=== PATIENT | male | born 1990 | race Asian ===

== ENCOUNTER 2018-11-09 16:21 | Inpatient (IN) | payer OTHER ==
[~2018-11-09] VITALS: Ht 185.4 cm; Wt 79.9 kg
[2018-11-09] VITALS (92 sets, daily range): BP systolic 131; BP diastolic 78; PULSE 69; TEMP 98.8; O2SAT 97–99
[2018-11-09 17:22] LABS: ARTERIAL BLD GAS O2 SATURATION 96.5 % (92-100); ARTERIAL BLD GAS TCO2 CT 18.6; ARTERIAL BLOOD GAS BASE EXCESS -6.4 (-2-2); ARTERIAL BLOOD GAS HCO3 17.7 meq/L (22-26); ARTERIAL BLOOD GAS PCO2 31.7 mmHg (35-45); ARTERIAL BLOOD GAS PO2 88.6 mmHg (80-100); ARTERIAL BLOOD GAS pH 7.36 (7.35-7.45)
[2018-11-09 17:45] LABS: COLLECTION METHOD CLEAN CATCH
[2018-11-09 17:48] LABS: BASO % 0.8 % (0.0-2.0); EOS # 0.1 (0.0-0.7); EOS % 2.7 % (0-4.0); GRAN # 3.2 (1.4-6.5); GRAN % 61.3 % (42.2-75.2); HEMATOCRIT 44.1 % (42.0-52.0); LYMPH # 1.3 (1.2-3.4); LYMPH % 25.5 % (20.0-51.0); MEAN CELL VOLUME 84 fl (80.0-100.0); MEAN CORPUSCULAR HEMOGLOBIN 30 pg (27.0-31.0); MEAN CORPUSCULAR HGB CONC 36 g/dl (33.0-37.0); MEAN PLATELET VOLUME 12.4 fl (7.4-10.4); MONO # 0.5 (0.1-0.6); MONO % 9.5 % (1.7-9.3); PLATELET COUNT 180 K/mm3 (130-400); RED BLOOD COUNT 5.26 M/mm3 (4.20-5.60); REDCELL DISTRIBUTION WIDTH-CV 11.7 % (11.5-14.5)
[2018-11-09 17:52] LABS: MUCOUS Present /lpf; PH 5 (5-8); SQUAMOUS EPITHELIAL None Seen /hpf; URINE APPEARANCE Clear; URINE BACTERIA None Seen /hpf; URINE BILIRUBIN Negative (NEGATIVE); URINE BLOOD Negative (NEGATIVE); URINE COLOR Straw; URINE GLUCOSE 3+ (NEGATIVE); URINE KETONE 2+ (NEGATIVE); URINE LEUKOCYTE ESTERASE Negative (NEGATIVE); URINE NITRATE Negative (NEGATIVE); URINE PROTEIN(semi-quant) Negative (NEGATIVE); URINE RBC 0-2 /hpf; URINE UROBILINOGEN Negative (NEGATIVE)
[2018-11-09 18:05] LABS: ACETONE,SERUM MODERATE
[2018-11-09 18:07] LABS: ALANINE AMINOTRANSFERASE 23 U/L (21-72); ALBUMIN 4.5 gm/dL (3.5-5.0); ALKALINE PHOSPHATASE 131 U/L (50-136); ANION GAP 15 mmol/L (7-16); AST,SGOT 29 U/L (15-37); BILIRUBIN,TOTAL 1.2 mg/dL (0.0-1.0); BLOOD UREA NITROGEN 11 mg/dL (9-20); CALCIUM 9.5 mg/dL (8.4-10.2); CARBON DIOXIDE 21 mmol/L (22-30); CHLORIDE 93 mmol/L (98-107); CREATININE, serum 0.86 (0.66-1.25); LIPASE 128 U/L (23-300); POTASSIUM 4.5 mmol/L (3.4-5.0); SODIUM 129 mmol/L (137-145); TOTAL PROTEIN 7.6 gm/dL (6.4-8.2)
[2018-11-09 18:08] LABS: GLUCOSE 555 mg/dL (74-106)
--- NOTE | 2018-11-09 21:10 | NUR ---
GEORGINA Piedra calls at this time from ED to give report. Patient will be brought over via wheelchair.
--- NOTE | 2018-11-09 21:38 | NUR ---
Patient arrives at this time with belongings via wheelchair. Patient's girlfriend, Veronique, at the bedside. GEORGINA Piedra reports blood glucose at 159 and she stopped the insulin drip. NS remains running. Patient transfers self to unit bed. Attached to monitoring equipment and changed into gown. Assessment complete. All findings WNL. Patient has no complaints of pain or discomfort. Glucose to be checked hourly. Oriented patient to unit and room. No further needs at this time. Will continue to monitor. Call light within reach.
[2018-11-10] VITALS (608 sets, daily range): BP systolic 111–125; BP diastolic 56–76; PULSE 55–79; TEMP 97.2–98.8; O2SAT 96–100
--- NOTE | 2018-11-10 | NUR ---
Patient resting in bed at this time. No current needs. Vitals remain stable. After starting D5 1/2NS, patient is restarted on insulin at 1unit/hr due to glucose being 183. Glucose checks to continue. No complaints of pain. Will continue to monitor. Call light within reach.
--- NOTE | 2018-11-10 04:00 | NUR ---
Patient sleeps between disturbances. Patient's glucose has come down to 123, so insulin drip stopped at this time. Will continue accuchecks. Patient's vitals remain stable and WNL. No current needs. Will continue to monitor. Call light within reach.
[2018-11-10 05:29] LABS: CALCIUM 8.4 mg/dL (8.4-10.2); CREATININE, serum 0.71 (0.66-1.25); MAGNESIUM 1.9 mg/dL (1.6-2.3); POTASSIUM 3.3 mmol/L (3.4-5.0)
--- NOTE | 2018-11-10 07:43 | NUR ---
Bedside report given to GEORGINA Cesar. All lines and medications reviewed. Transfer of care at this time.
--- NOTE | 2018-11-10 07:45 | NUR ---
Bedside report received from GEORGINA Mcclain. Care of patient assumed at this time.
--- NOTE | 2018-11-10 08:08 | NUR ---
Patient assessment complete. Patient resting in bed. Denies any pain or shortness of breath at this time. No acute findings on assessment. Will continue to monitor.
--- NOTE | 2018-11-10 09:23 | NUR ---
Initial visit; Search Manager welcomed patient letting him know Search Manager is available.
--- NOTE | 2018-11-10 10:35 | NUR ---
MEHNAZ student attended clinical rounds and met with patient afterwards to discuss discharge plan. 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 Patient has girlfriend in [place] [facility], uncle in [place], and parents live out of state. Patient follows up at [facility] on campus and receives his medications from [facility]. Patient reports he usually doesn't have many medications so unsure if assistance is needed. MEHNAZ student informed patient that the social worker aide upstairs will follow when transferred. Patient does not have a DPOA-HC completed and was not interested in completing one at this time. Patient states he is fine with his parents (next of kin) making any decisions if necessary. Patient reports that he has been in contact with his professors and does not feel it necessary for us to contact [employer] at this time. No identified needs at this. SW to follow up about affording prescriptions.
--- NOTE | 2018-11-10 15:43 | NUR ---
Report called to medical floor GEORGINA Choudhary.
--- NOTE | 2018-11-10 16:00 | NUR ---
Patient arrived to floor via wheelchair from ICU. Is independent in room, girlfriend is at bedside. Lungs ascultated and clear bilaterally. HR is regular. Abdomen is soft and nontender, bowel sounds are active x4. Patient has no skin issues. No edema is noted. Accu check monitorred at this time and is 210. Patient states he does not want to eat until later as he had a late lunch. He agrees to notify nursing when he is ready to eat so he could have a recheck of his blood glucose for accurate insulin administration. Denies having any pain. Water taken to room. Call light is within reach.
--- NOTE | 2018-11-10 16:00 | NUR ---
Patient taken to medical floor room 307 by wheelchair. Patient's friend accompanies patient. No concerns at this time. All patient belongings are transported with patient. GEORGINA Choudhary, notified of patient arrival.
--- NOTE | 2018-11-10 18:29 | NUR ---
Patient has had uneventful afternoon. Still states he is not ready to eat yet. Will notify staff when ready.
--- NOTE | 2018-11-10 20:20 | NUR ---
Pt resting in bed, no C/O pain at this time, shift assessments complete, left Pt call light in reach, bed in lowest position.
[2018-11-11 00:13] VITALS: BP 107/52; PULSE 92; TEMP 98.4
[2018-11-11 04:25] VITALS: BP 108/48; PULSE 60; TEMP 97.7
--- NOTE | 2018-11-11 05:23 | NUR ---
Pt slept well during the night, no C/O pain, VS have remained stable.
[2018-11-11 05:50] LABS: BASO % 0.4 % (0.0-2.0); EOS # 0.2 (0.0-0.7); GRAN # 2.1 (1.4-6.5); GRAN % 44.3 % (42.2-75.2); LYMPH % 41.5 % (20.0-51.0); MEAN CELL VOLUME 84 fl (80.0-100.0); MEAN CORPUSCULAR HGB CONC 35 g/dl (33.0-37.0); MONO # 0.4 (0.1-0.6); MONO % 8.6 % (1.7-9.3); PLATELET COUNT 160 K/mm3 (130-400); RED BLOOD COUNT 4.36 M/mm3 (4.20-5.60); REDCELL DISTRIBUTION WIDTH-CV 11.9 % (11.5-14.5)
[2018-11-11 06:00] LABS: HEMATOCRIT 36.7 % (42.0-52.0); MEAN CORPUSCULAR HEMOGLOBIN 30 pg (27.0-31.0)
[2018-11-11 06:03] LABS: CALCIUM 8.7 mg/dL (8.4-10.2); CREATININE, serum 0.7 (0.66-1.25); POTASSIUM 3.5 mmol/L (3.4-5.0)
--- NOTE | 2018-11-11 06:50 | NUR ---
Received report from Arturo, went to see patient for shift change. Patient is observed to be lying on left side with eyes closed. Girlfriend is at bedside. Respirations are even and non-labored. Call light is within reach.
[2018-11-11] MEDS ORDERED: FREESTYLE PREC1 EAC5 MC (09:25)
[2018-11-11] MEDS ORDERED: LANCETS MC (09:26)
[2018-11-11] MEDS ORDERED: GLUCOSE TEST ST1 DEV MC (09:27)
[2018-11-11] MEDS ORDERED: LEVEMIR FLEX100 U/ML SQ (09:35)
[2018-11-11] MEDS ORDERED: NOVOLOG FLEX100 U/ML SQ ×2 (09:36)
[2018-11-11] MEDS ORDERED: CVS GLUCOSE BIT1 CTB PO (09:37)
[2018-11-11] MEDS ORDERED: HUMALOG PEN100 U/ML SQ (10:51)
--- NOTE | 2018-11-11 11:27 | NUR ---
MEHNAZ met with patient about the new medications he will need when discharged. SW reported patient can obtain coupons online for his insulin. Patient reports he will utilize those resources. SW also informed patient that he will be scheduled with Diabetes Education as well.
[2018-11-11 15:09] VITALS: BP 128/73; PULSE 67; TEMP 98.1
== END 2018-11-11 17:47 | disposition home or self-care (01) | DRG 639 ==
LOC: COL.ER 16:21 → ICU 19:02 → MEDICAL 11-10 18:03
PROVIDERS: Emergency Medicine; Nurse Practitioner; Physician Assistant; ADMIT Internal Medicine
DX: E11.65 Type 2 diabetes mellitus with hyperglycemia (principal); F17.210 Nicotine dependence, cigarettes, uncomplicated; E87.6 Hypokalemia
CPT/HCPCS: 99223-AI; 99232-AI; 99239; J1650; J1815; J2405; J3475; J3480; J7030

== ENCOUNTER → 2018-11-16 | Outpatient (CLI) | payer OTHER ==
[~2018-11-16] MED LIST: CVS GLUCOSE BIT1 CTB PO; FREESTYLE PREC1 EAC5 MC; GLUCOSE TEST ST1 DEV MC; HUMALOG PEN100 U/ML SQ; LANCETS MC; LEVEMIR FLEX100 U/ML SQ; NOVOLOG FLEX100 U/ML SQ
[2018-11-16 18:36] LABS: THYROID STIMULATING HORMONE 1.28 uIU/mL (0.465-4.680)
== END ==
LOC: ZCOL.LAB 16:40
PROVIDERS: Family Medicine
DX: R79.89 Other specified abnormal findings of blood chemistry (principal)